=== PATIENT | female | born 1965 | race Caucasian/White ===

== ENCOUNTER 2018-05-26 21:37 | Inpatient (IN) | payer MEDICARE, MEDICAID ==
[~2018-05-26] VITALS: Ht 162.6 cm; Wt 68.0 kg
--- NOTE | ~2018-05-26 | MORECARE ---
CASE MANAGEMENT DISCHARGE SUMMARY PATIENT: GIRISH RODNEY UNIT: [id number] ADM DATE: 05/27/18 AGE: 52 : 61 SEX: F ROOM/BED: D.2233 AUTHOR: KATHYA MOLINA PHYSICIAN: REFERRING PHYSICIAN: TRAVIS ROMAN MD DATE OF SERVICE: 05/30/18 Discharge Plan Patient Name: GIRISH RODNEY Facility: [facility]:[place] : 1965 Planned Disposition: Home Anticipated Discharge Date: Discharge Date: Expected LOS: Initial Reviewer: [email or web address] Initial Review Date: 05/30/2018 Generated: 05/30/18 1:13 pm DCPIA - Discharge Planning Initial Assessment Updated by [email or web address]: Martine Martinez on 05/30/18 12:07 pm * Is the patient Alert and Oriented? Yes * How many steps to enter\exit or inside your home? 2/0 * PCP Dr. Lara * Pharmacy [facility] * Preadmission Environment Home with Family * ADLs Independent * Equipment Glucometer * List name and contact numbers for known caregivers / representatives who currently or will assist patient after discharge: [facility] - [phone] * Verbal permission to speak to the caregivers and representatives has been obtained from the patient. Yes * Community resources currently utilized None * Additional services required to return to the preadmission environment? No * Can the patient safely return to the preadmission environment? Yes * Has this patient been hospitalized within the prior 30 days at any hospital? No Last DP export: 05/30/18 11:05 Patient Name: GIRISH RODNEY Page [id number] at 1213 All edits/amendments must be made on the electronic document DICTATION DATE: 05/30/18 121 FIRE EXTINGUISHER REPAIRER INSPECTOR: CARLOS 05/30/182 RPT#: [id number] DC DATE: STATUS: ADM IN [facility] [address] [place] [address] END OF REPORT
--- NOTE | ~2018-05-26 | MORECARE ---
CASE MANAGEMENT DISCHARGE SUMMARY PATIENT: GIRISH RODNEY UNIT: [id number] ADM DATE: 05/27/18 AGE: 52 : 61 SEX: F ROOM/BED: D.2233 AUTHOR: TRACY,DOC PHYSICIAN: REFERRING PHYSICIAN: TRAVIS ROMAN MD DATE OF SERVICE: 05/30/18 Discharge Plan Patient Name: GIRISH RODNEY Facility: [facility]:[place] : 1965 Planned Disposition: Home Anticipated Discharge Date: Discharge Date: Expected LOS: Initial Reviewer: [email or web address] Initial Review Date: 05/30/2018 Generated: 05/30/18 1:21 pm Comments DCP- Discharge Planning Updated by [email or web address]: Martine Martinez on 05/30/18 11:[address] Patient Name: GIRISH RODNEY Admission Status: ER Accout number: [id number] Admission Date: 05-27-2018 : 1965 Admission Diagnosis: Attending: TRAVIS ROMAN Current LOS: 3 Anticipated DC Date: Planned Disposition: Home Primary Insurance: [employer] ADV Discharge Planning Comments: CM met with patient, she is alone in the room. She states she lives with her daughter and 5 year old grand son. States she is independent with all ADL's and IADL's. States her daughter will take her home on discharge. States she has a glucometer and checks her sugar 4 times a day. States she does not have any other DME or need any other DME. States she does not have any outside community resources assisting in the house. Declines need for home health services. CM will continue to follow and assist with discharge planning/needs. Sewer Pipe Layer: Martine Martinez DCPIA - Discharge Planning Initial Assessment Updated by [email or web address]: Martine Martinez on 05/30/18 12:07 pm * Is the patient Alert and Oriented? Yes * How many steps to enter\exit or inside your home? 2/0 * PCP Dr. Lara * Pharmacy [facility] [address] [place] * Preadmission Environment Home with Family * ADLs Independent * Equipment Glucometer * List name and contact numbers for known caregivers / representatives who currently or will assist patient after discharge: [facility] - [phone] * Verbal permission to speak to the caregivers and representatives has been obtained from the patient. Yes * Community resources currently utilized None * Additional services required to return to the preadmission environment? No * Can the patient safely return to the preadmission environment? Yes * Has this patient been hospitalized within the prior 30 days at any hospital? No Last DP export: 05/30/18 11:13 Patient Name: GIRISH RODNEY Page [id number] at 1221 All edits/amendments must be made on the electronic document DICTATION DATE: 05/30/18 1221 TOOL AND DIE MAKER APPRENTICE: CARLOS 05/30/18 1221 RPT#: [id number] DC DATE: STATUS: ADM IN [facility] [address] [place] [address] END OF REPORT
--- NOTE | ~2018-05-26 | MORECARE ---
CASE MANAGEMENT DISCHARGE SUMMARY PATIENT: GIRISH RODNEY UNIT: [id number] ADM DATE: 05/27/18 AGE: 52 : 61 SEX: F ROOM/BED: D.2233 AUTHOR: TRACY,DOC PHYSICIAN: REFERRING PHYSICIAN: TRAVIS ROMAN MD DATE OF SERVICE: 05/31/18 Discharge Plan Patient Name: GIRISH RODNEY Facility: [facility]:[place] : 1965 Planned Disposition: Home Anticipated Discharge Date: Discharge Date: 05/30/2018 Expected LOS: 0 Initial Reviewer: [email or web address] Initial Review Date: 05/30/2018 Generated: 05/31/18 5:44 pm Comments DCP- Discharge Planning Updated by [email or web address]: Martine Martinez on 05/30/18 11:[address] Patient Name: GIRISH RODNEY Admission Status: ER Accout number: [id number] Admission Date: 05-27-2018 : 1965 Admission Diagnosis: Attending: TRAVIS ROMAN Current LOS: 3 Anticipated DC Date: Planned Disposition: Home Primary Insurance: [employer] ADV Discharge Planning Comments: CM met with patient, she is alone in the room. She states she lives with her daughter and 5 year old grand son. States she is independent with all ADL's and IADL's. States her daughter will take her home on discharge. States she has a glucometer and checks her sugar 4 times a day. States she does not have any other DME or need any other DME. States she does not have any outside community resources assisting in the house. Declines need for home health services. CM will continue to follow and assist with discharge planning/needs. Veneer Stapler: Martine Martinez DCPIA - Discharge Planning Initial Assessment Updated by [email or web address]: Martien Martinez on 05/30/18 12:07 pm * Is the patient Alert and Oriented? Yes * How many steps to enter\exit or inside your home? 2/0 * PCP Dr. Lara * Pharmacy [facility] on [address] * Preadmission Environment Home with Family * ADLs Independent * Equipment Glucometer * List name and contact numbers for known caregivers / representatives who currently or will assist patient after discharge: [facility] - [facility] - [phone] * Verbal permission to speak to the caregivers and representatives has been obtained from the patient. Yes * Community resources currently utilized None * Additional services required to return to the preadmission environment? No * Can the patient safely return to the preadmission environment? Yes * Has this patient been hospitalized within the prior 30 days at any hospital? No Last DP export: 05/30/18 11:21 Patient Name: GIRISH RODNEY Page [id number] at 1644 All edits/amendments must be made on the electronic document DICTATION DATE: 05/31/181642 ENVIRONMENTAL COMMUNICATIONS SPECIALIST: CARLOS 05/31/181642 RPT#: [id number] DC DATE:05/30/18 STATUS: DIS IN [facility] [address] [place] [address] END OF REPORT
--- NOTE | ~2018-05-26 | MORECARE ---
CASE MANAGEMENT DISCHARGE SUMMARY PATIENT: GIRISH RODNEY UNIT: [id number] ADM DATE: 05/27/18 AGE: 52 : 61 SEX: F ROOM/BED: D.2233 AUTHOR: KATHYA MOLINA PHYSICIAN: REFERRING PHYSICIAN: TRAVIS ROMAN MD DATE OF SERVICE: 05/30/18 Discharge Plan Patient Name: GIRISH RODNEY Facility: [facility]:[place] : 1965 Planned Disposition: Home Anticipated Discharge Date: Discharge Date: Expected LOS: Initial Reviewer: [email or web address] Initial Review Date: 05/30/2018 Generated: 05/30/18 1:05 pm Patient Name: GIRISH RODNEY Page [id number] at 1205 All edits/amendments must be made on the electronic document DICTATION DATE: 05/30/18 120 INSTRUMENT MAN: CARLOS 05/30/18 1204 RPT#: [id number] DC DATE: STATUS: ADM IN [facility] [address] [place] [address] END OF REPORT
[~2018-05-26 21:37] MED LIST: ATIVAN0.5 MG PO; BAYER CHEWABLE81 MG PO; CELEXA40 MG PO; GLUCOPHAGE1000 MG PO; JANUVIA50 MG PO; METOPROLOL TAR100 M1 PO; NORVASC5 MG PO; PLAVIX75 MG PO; RANEXA500 MG PO; VALIUM5 MG PO
[2018-05-26] MEDS ORDERED: VICTOZA0.6 MG/0.1 SQ (21:51)
[2018-05-26 22:27] LABS: APPEARANCE CLEAR (CLEAR); BILIRUBIN NEGATIVE (NEGATIVE); COLOR YELLOW (YELLOW); GLUCOSE 1000 mg/dL (NEGATIVE); KETONE NEGATIVE (NEGATIVE); NITRITE NEGATIVE (NEGATIVE); PROTEIN NEGATIVE (NEGATIVE); UROBILINOGEN NORMAL (NORMAL)
[2018-05-26 22:28] LABS: BACTERIA MODERATE /hpf (NONE SEEN); EPITHELIAL CELLS 0-5 /hpf (0-5); WHITE CELLS - URINE 0-5 /hpf (0-5)
[2018-05-26 22:30] LABS: BASOPHILS 0.3 % (0-2); EOSINOPHILS 1.7 % (0-7); HEMATOCRIT 38.3 % (36.0-48.0); HEMOGLOBIN 12.7 g/dL (12-16); IMMATURE GRANULOCYTES 0.3 % (0-5); LYMPHOCYTES 36.6 % (15-50); MCH 28.9 pg (26.0-34.0); MCHC 33.2 g/dL (31.0-37.0); MCV 87.2 fL (80.0-100.0); MEAN PLATELET VOLUME 10.4 fL (7.4-10.4); MONOCYTES 5.7 % (2-11); NEUTROPHILS 55.4 % (40-80); PLATELET COUNT 267 10x3/uL (130-400); RBC 4.39 10x6/uL (4.00-5.40); RDW 13.2 % (11.5-14.5); WBC 11.5 10x3/uL (4.8-10.8)
[2018-05-26 22:44] LABS: ALBUMIN 3.3 g/dL (3.4-5.0); ANION GAP 10.6 mmol/L (8-16); BILIRUBIN - TOTAL 0.14 mg/dL (0.2-1.3); CALCIUM 8.6 mg/dL (8.5-10.1); CARBON DIOXIDE 30.3 mmol/L (21.0-32.0); CREATININE - SERUM 1.3 mg/dL (0.6-1.3); POTASSIUM - SERUM 3.9 mmol/L (3.5-5.1); PROTEIN - SERUM 7.1 g/dL (6.4-8.2)
[2018-05-27 01:22] VITALS: BP 122/50; BMI 25.8
[2018-05-27 04:43] VITALS: BP 110/58
[2018-05-27 07:51] VITALS: BP 115/57
[2018-05-27 08:35] VITALS: BMI 25.7
[2018-05-27 11:30] LABS: BASOPHILS 0.2 % (0-2); EOSINOPHILS 1.9 % (0-7); HEMATOCRIT 36.7 % (36.0-48.0); HEMOGLOBIN 11.8 g/dL (12-16); IMMATURE GRANULOCYTES 0.1 % (0-5); LYMPHOCYTES 33.8 % (15-50); MCH 28.6 pg (26.0-34.0); MCHC 32.2 g/dL (31.0-37.0); MCV 89.1 fL (80.0-100.0); MEAN PLATELET VOLUME 10.6 fL (7.4-10.4); MONOCYTES 6.3 % (2-11); NEUTROPHILS 57.7 % (40-80); PLATELET COUNT 243 10x3/uL (130-400); RBC 4.12 10x6/uL (4.00-5.40); RDW 13.3 % (11.5-14.5); WBC 8.9 10x3/uL (4.8-10.8)
[2018-05-27 11:40] LABS: ANION GAP 10.7 mmol/L (8-16); CALCIUM 8.1 mg/dL (8.5-10.1); CARBON DIOXIDE 29.3 mmol/L (21.0-32.0)
[2018-05-27 11:42] LABS: CREATININE - SERUM 0.9 mg/dL (0.6-1.3)
[2018-05-27 12:40] VITALS: Ht 162.6 cm; Wt 68.0 kg
[2018-05-27 12:55] VITALS: BP 112/59
[2018-05-27 20:00] VITALS: BP 103/62
[2018-05-28] VITALS: BP 114/61
[2018-05-28 04:00] VITALS: BP 116/56
[2018-05-28 06:07] LABS: BASOPHILS 0.2 % (0-2); EOSINOPHILS 0.8 % (0-7); HEMATOCRIT 35.2 % (36.0-48.0); HEMOGLOBIN 11.5 g/dL (12-16); IMMATURE GRANULOCYTES 0.3 % (0-5); LYMPHOCYTES 24.1 % (15-50); MCH 28.9 pg (26.0-34.0); MCHC 32.7 g/dL (31.0-37.0); MCV 88.4 fL (80.0-100.0); MEAN PLATELET VOLUME 10.9 fL (7.4-10.4); MONOCYTES 3.6 % (2-11); PLATELET COUNT 242 10x3/uL (130-400); RBC 3.98 10x6/uL (4.00-5.40); RDW 13.4 % (11.5-14.5); WBC 9.6 10x3/uL (4.8-10.8)
[2018-05-28 06:36] LABS: ALBUMIN 2.8 g/dL (3.4-5.0); ALKALINE PHOSPHATASE 49 U/L (46-116); ALT (SGPT) 19 U/L (10-68); BILIRUBIN - TOTAL 0.25 mg/dL (0.2-1.3); CARBON DIOXIDE 24.9 mmol/L (21.0-32.0); CHLORIDE - SERUM 104 mmol/L (98-107); CREATININE - SERUM 0.8 mg/dL (0.6-1.3); GLUCOSE 154 mg/dL (74-106); POTASSIUM - SERUM 3.9 mmol/L (3.5-5.1); PROTEIN - SERUM 6.1 g/dL (6.4-8.2); SODIUM 136 mmol/L (136-145); eGFR NON AFRICAN AMERICAN 79 mL/min (90-120)
[2018-05-28 06:37] LABS: CALC OSMOLALITY 273 mosm/kg (275-300); UREA NITROGEN 9 mg/dL (7-18)
[2018-05-28 08:34] VITALS: BP 115/57
[2018-05-28 11:31] VITALS: BP 120/50
[2018-05-28 17:26] VITALS: BP 118/51
[2018-05-28 20:45] VITALS: BP 101/53
[2018-05-29 06:14] LABS: BASOPHILS 0.2 % (0-2); EOSINOPHILS 1.5 % (0-7); HEMATOCRIT 34.1 % (36.0-48.0); IMMATURE GRANULOCYTES 0.2 % (0-5); LYMPHOCYTES 27.8 % (15-50); MCH 28.7 pg (26.0-34.0); MCHC 32.3 g/dL (31.0-37.0); MEAN PLATELET VOLUME 10.6 fL (7.4-10.4); MONOCYTES 6.3 % (2-11); PLATELET COUNT 239 10x3/uL (130-400); RBC 3.83 10x6/uL (4.00-5.40); RDW 13.6 % (11.5-14.5); WBC 8.1 10x3/uL (4.8-10.8)
[2018-05-29 06:30] VITALS: BP 120/59
[2018-05-29 06:42] LABS: ALBUMIN 2.9 g/dL (3.4-5.0); ALKALINE PHOSPHATASE 43 U/L (46-116); ALT (SGPT) 21 U/L (10-68); BILIRUBIN - TOTAL 0.25 mg/dL (0.2-1.3); CALC OSMOLALITY 278 mosm/kg (275-300); CALCIUM 7.8 mg/dL (8.5-10.1); CARBON DIOXIDE 29.1 mmol/L (21.0-32.0); CHLORIDE - SERUM 106 mmol/L (98-107); CREATININE - SERUM 0.8 mg/dL (0.6-1.3); GLUCOSE 147 mg/dL (74-106); POTASSIUM - SERUM 3.8 mmol/L (3.5-5.1); PROTEIN - SERUM 6.1 g/dL (6.4-8.2); SODIUM 140 mmol/L (136-145); UREA NITROGEN 5 mg/dL (7-18); eGFR NON AFRICAN AMERICAN 79 mL/min (90-120)
[2018-05-29 08:55] VITALS: BP 126/60
[2018-05-29] MEDS ORDERED: HYDROCODON-ACE1 EAC7 PO (13:26)
[2018-05-29 14:57] VITALS: BP 108/56
[2018-05-29 16:31] VITALS: BP 134/82
[2018-05-29 20:00] VITALS: BP 125/63
[2018-05-30 06:00] VITALS: BP 114/54
[2018-05-30 06:28] LABS: BASOPHILS 0.2 % (0-2); EOSINOPHILS 1.1 % (0-7); HEMATOCRIT 32.9 % (36.0-48.0); HEMOGLOBIN 10.5 g/dL (12-16); IMMATURE GRANULOCYTES 0.4 % (0-5); LYMPHOCYTES 23.4 % (15-50); MCH 28.5 pg (26.0-34.0); MCHC 31.9 g/dL (31.0-37.0); MCV 89.2 fL (80.0-100.0); MEAN PLATELET VOLUME 10.6 fL (7.4-10.4); NEUTROPHILS 66.9 % (40-80); PLATELET COUNT 206 10x3/uL (130-400); RBC 3.69 10x6/uL (4.00-5.40); RDW 13.6 % (11.5-14.5); WBC 8.5 10x3/uL (4.8-10.8)
[2018-05-30 07:08] LABS: ALBUMIN 2.7 g/dL (3.4-5.0); ALKALINE PHOSPHATASE 65 U/L (46-116); BILIRUBIN - TOTAL 0.27 mg/dL (0.2-1.3); CALCIUM 8.1 mg/dL (8.5-10.1); CARBON DIOXIDE 29.3 mmol/L (21.0-32.0); CHLORIDE - SERUM 107 mmol/L (98-107); CREATININE - SERUM 0.7 mg/dL (0.6-1.3); GLUCOSE 126 mg/dL (74-106); POTASSIUM - SERUM 3.8 mmol/L (3.5-5.1); PROTEIN - SERUM 5.7 g/dL (6.4-8.2); SODIUM 143 mmol/L (136-145); eGFR NON AFRICAN AMERICAN > 90 mL/min (90-120)
[2018-05-30 07:09] LABS: ALT (SGPT) 112 U/L (10-68); CALC OSMOLALITY 283 mosm/kg (275-300); UREA NITROGEN 3 mg/dL (7-18)
[2018-05-30 08:45] VITALS: BP 133/63
[2018-05-30 12:45] VITALS: BP 134/71
== END 2018-05-30 15:33 | disposition home or self-care (01) | DRG 418 ==
LOC: D.ER 21:37 → D.MS 05-27 00:45
PROVIDERS: Emergency Medicine; Internal Medicine Nephrology; Surgery
PROC: 0FT44ZZ Resection of Gallbladder, Percutaneous Endoscopic Approach (ICD-10-PCS; principal; 2018-05-29 13:00)
DX: K81.0 Acute cholecystitis (principal); F17.203 Nicotine dependence unspecified, with withdrawal; N39.0 Urinary tract infection, site not specified; E11.9 Type 2 diabetes mellitus without complications; I10 Essential (primary) hypertension; I25.10 Atherosclerotic heart disease of native coronary artery without angina pectoris; F41.9 Anxiety disorder, unspecified

== ENCOUNTER → 2018-11-06 09:11 | Outpatient (CLI) | payer MEDICARE, MEDICAID ==
[~2018-11-06 09:11] MED LIST changes: +HYDROCODON-ACE1 EAC7 PO; +VICTOZA0.6 MG/0.1 SQ
== END | disposition home or self-care (01) ==
LOC: D.LAB 09:11
DX: K85.90 Acute pancreatitis without necrosis or infection, unspecified (principal); K52.9 Noninfective gastroenteritis and colitis, unspecified; R11.0 Nausea; R10.11 Right upper quadrant pain; K76.0 Fatty (change of) liver, not elsewhere classified

== ENCOUNTER → 2019-04-26 09:36 | Outpatient (CLI) | payer MEDICARE, MEDICAID ==
[2018-05-27 12:40] VITALS: BMI 25.7
[2019-04-26 10:37] LABS: HEMATOCRIT 40.7 % (36.0-48.0); HEMOGLOBIN 13.7 g/dL (12-16); LYMPHOCYTES 33.1 % (15-50); MCH 29.2 pg (26.0-34.0); MCHC 33.7 g/dL (31.0-37.0); MCV 86.8 fL (80.0-100.0); MEAN PLATELET VOLUME 10.3 fL (7.4-10.4); NEUTROPHILS 61.1 % (40-80); PLATELET COUNT 239 10x3/uL (130-400); RBC 4.69 10x6/uL (4.00-5.40); RDW 12.9 % (11.5-14.5); WBC 8.6 10x3/uL (4.8-10.8)
[2019-04-26 10:52] LABS: ALKALINE PHOSPHATASE 86 U/L (46-116); ALT (SGPT) 38 U/L (10-68); AMYLASE - SERUM 31 U/L (25-115); C-REACTIVE PROTEIN 1.3 mg/dL (0.0-0.9); CALC OSMOLALITY 284 mosm/kg (275-300); CHLORIDE - SERUM 105 mmol/L (98-107); CREATININE - SERUM 0.8 mg/dL (0.6-1.3); LIPASE 207 U/L (73-393); POTASSIUM - SERUM 4.8 mmol/L (3.5-5.1); PROTEIN - SERUM 7.3 g/dL (6.4-8.2); SODIUM 141 mmol/L (136-145); UREA NITROGEN 10 mg/dL (7-18); eGFR NON AFRICAN AMERICAN 79 mL/min (90-120)
[2019-04-26 10:54] LABS: GLUCOSE 192 mg/dL (74-106)
[2019-04-26 11:39] LABS: ERYTHROCYTE SEDIMENTATION RATE 10 mm/hr (0-30)
== END | disposition home or self-care (01) ==
LOC: D.US 09:36 → D.NM 11:30
PROVIDERS: ATTEND Internal Medicine Gastroenterology
DX: R11.2 Nausea with vomiting, unspecified (principal); R10.9 Unspecified abdominal pain; K59.1 Functional diarrhea